=== PATIENT | male | born 1985 | race American Indian/Alaskan Native ===

== ENCOUNTER 2018-12-31 16:57 | Emergency (ER) | payer OTHER ==
--- NOTE | 2018-12-31 17:29 | Emergency Department Report ---
Blank Doc - Documentation Documentation: This is a 33-year-old male that presents with abdominal pain. Denies any n/v. Stated also has some burping. This initial assessment/diagnostic orders/clinical plan/treatment(s) is/are subject to change based on patient's health status, clinical progression and re- assessment by fellow clinical providers in the ED. Further treatment and workup at subsequent clinical providers discretion. Patient/guardians urged not to elope from the ED as their condition may be serious if not clinically assessed and managed. Initial orders include: 1- Patient sent to [facility] for further evaluation and treatment 2- labs 3- UA
[2018-12-31] MEDS ORDERED: LEVSIN SL SL ONE (18:16)
[2018-12-31 19:05] LABS: Bilirubin,Urine NEG (Negative); Blood,Urine NEG (Negative); Color,Urine Yellow (Yellow); Mucus,Urine FEW /HPF; Protein,Urine <15 mg/dL mg/dL (Negative); Urobilinogen,Urine < 2.0 mg/dL (<2.0)
[2018-12-31 19:13] LABS: Basophils # (Auto) 0.1 K/mm3 (0.0-0.1); Basophils % (Auto) 0.8 % (0.0-1.8); Eosinophils # (Auto) 0.2 K/mm3 (0.0-0.4); Eosinophils % (Auto) 2.2 % (0.0-4.3); Hematocrit 45.7 % (35.5-45.6); Hemoglobin 15.2 gm/dl (11.8-15.2); Lymphocytes # (Auto) 2.5 K/mm3 (1.2-5.4); Lymphocytes % (Auto) 32.6 % (13.4-35.0); Mean Corpuscular HGB Conc 33 % (32-34); Mean Corpuscular Volume 94 fl (84-94); Monocytes # (Auto) 0.6 K/mm3 (0.0-0.8); Monocytes % (Auto) 7.7 % (0.0-7.3); Platelet Count 265 K/mm3 (140-440); Red Blood Count 4.87 M/mm3 (3.65-5.03); Red Cell Distribution Width 13.2 % (13.2-15.2)
--- NOTE | 2018-12-31 20:01 | Emergency Department Report ---
ED Abdominal Pain HPI - General Chief Complaint: Abdominal Pain Stated Complaint: STOMACH PAIN Time Seen by Provider: 12/31/18 17:28 Source: patient Mode of arrival: Ambulatory Limitations: No Limitations - History of Present Illness Initial Comments: 33-year-old -Citizen Of [place] male presents to the emergency room for intermittent sharp crampy abdominal pain to the upper abdomen 2 weeks. Patient denies any nausea vomiting or diarrhea. Patient reports he has a history of alcoholic pancreatitis. Patient admits to belching and having acid reflux. Patient reports it feels like his pancreatitis. Patient has taken nothing for it. Denies any nausea vomiting diarrhea. Patient does have a primary care provider since [place] Complaint: abdominal pain Onset/Timin -: week(s) Location: diffuse Migration to: no migration Severity scale (0 -10): 6 Quality: cramping - Related Data Previous Rx's Medication Instructions Recorded Last Taken Type Omeprazole 40 mg PO QDAY #20 capsule. 12/31/18 Unknown Rx Allergies Allergy/AdvReac Type Severity Reaction Status Date / Time No Known Allergies Allergy Unverified 12/31/18 17:00 ED Review of Systems ROS: Stated complaint: STOMACH PAIN Other details as noted in HPI Comment: All other systems reviewed and negative Gastrointestinal: abdominal pain, other (belching, reflux). denies: nausea, vomiting Skin: denies: rash, lesions ED Past Medical Hx - Past Medical History Previous Medical History?: No - Surgical History Past Surgical History?: No - Social History Smoking Status: Current Every Day Smoker Substance Use Type: Alcohol - Medications Home Medications: Home Medications Medication Instructions Recorded Confirmed Last Taken Type Omeprazole 40 mg PO QDAY #20 capsule. 12/31/18 Unknown Rx ED Physical Exam - General Limitations: No Limitations General appearance: alert, in no apparent distress - Head Head exam: Present: atraumatic, normocephalic - Eye Eye exam: Present: normal appearance - ENT ENT exam: Present: mucous membranes moist - Neck Neck exam: Present: normal inspection - Respiratory Respiratory exam: Present: normal lung sounds bilaterally. Absent: respiratory distress - Cardiovascular Cardiovascular Exam: Present: regular rate, normal rhythm. Absent: systolic murmur, diastolic murmur, rubs, gallop - GI/Abdominal GI/Abdominal exam: Present: soft, normal bowel sounds - Rectal Rectal exam: Present: deferred - Extremities Exam Extremities exam: Present: normal inspection - Back Exam Back exam: Present: normal inspection - Neurological Exam Neurological exam: Present: alert, oriented X3 - Psychiatric Psychiatric exam: Present: normal affect, normal mood - Skin Skin exam: Present: warm, dry, intact, normal color. Absent: rash ED Course Vital Signs 12/31/18 17:28 Temperature 99.0 F Pulse Rate 54 L Respiratory 18 Rate Blood Pressure 140/78 O2 Sat by Pulse 98 Oximetry ED Medical Decision Making - Lab Data Result diagrams: 12/31/18 19:03 12/31/18 19:34 - Radiology Data Radiology results: report reviewed Patient: [address] MR#: [id number] 3 : 1985 Acct:[id number] Age/Sex: 33 / M ADM Date: 12/31/18 Loc: ED Attending Dr: Ordering Physician: JOSE GOMEZ Date of Service: 12/31/18 Procedure(s): CT abdomen pelvis wo con Accession Number(s): [id number] cc: JOSE GOMEZ CT ABDOMEN AND PELVIS WITHOUT IV CONTRAST INDICATION: epigastric abdominal pain. COMPARISON: None available. TECHNIQUE: All CT scans at this facility use dose modulation, automated exposure control, iterative reconstruction or weight based dosing, when appropriate, to reduce radiation dose to as low as reasonably achievable. FINDINGS: Lung Bases: No significant abnormality. Skeletal System: No acute abnormality. ABDOMEN: Liver: No significant abnormality. Gallbladder: No significant abnormality. Bile Ducts: No significant abnormality. Pancreas: No significant abnormality. Spleen: No significant abnormality. Adrenals: No significant abnormality. Right Kidney: There are a few punctate nonobstructing right renal stones. There is no right hydronephrosis. Left Kidney: No significant abnormality. Upper GI tract: No significant abnormality. Lymph Nodes: No significant adenopathy. Aorta: No significant abnormality. Additional Findings: No significant abnormality. PELVIS: Colon: Normal aside from diverticulosis. Urinary Bladder and Distal Ureters: No significant abnormality. Appendix: No significant abnormality. Lymph Nodes: No significant adenopathy. Additional Findings: None. IMPRESSION: 1. Within the limitations of non contrast technique, no acute process in the abdomen or pelvis. 2. There is minimal right nephrolithiasis. No ureteral stone or hydronephrosis. Signer Name: Saravanan Can MD Signed: 12/31/2018 8:34 PM Workstation Name: [id number] Transcribed By: SW Dictated By: Saravanan Can MD Electronically Authenticated By: Saravanan Can MD Signed Date/Time: 12/31/182033 DD/ 26 TD/TT: - Medical Decision Making 33-year-old -Citizen Of [place] male presents to the emergency room for intermitte nt sharp crampy abdominal pain to the upper abdomen 2 weeks. Patient denies any nausea vomiting or diarrhea. Patient reports he has a history of alcoholic pancreatitis. Patient admits to belching and having acid reflux. Patient reports it feels like his pancreatitis. Patient has taken nothing for it. Denies any nausea vomiting diarrhea. Patient does have a primary care provider since [place] Levsin 0.125 mg and Carafate 1 [address] by mouth liquid. CT of abdomen shows no acute abnormalities. Critical care attestation.: If time is entered above; I have spent that time in minutes in the direct care of this critically ill patient, excluding procedure time. ED Disposition Clinical Impression: Abdominal pain Qualifiers: Abdominal location: generalized Qualified Code(s): R10.84 - Generalized abdominal pain Acid reflux Qualifiers: Esophagitis presence: without esophagitis Qualified Code(s): K21.9 - Gastro- esophageal reflux disease without esophagitis Disposition: DC-01 TO HOME OR SELFCARE Is pt being admited?: No Does the pt Need Aspirin: No Condition: Stable Instructions: Gastroesophageal Reflux Disease (ED), Gas and Bloating (ED), Abdominal Pain (ED) Additional Instructions: Take medications as prescribed. 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 Referrals: PRIMARY MD [facility] [Primary Care Provider] - 3-5 Days [facility] [Provider Group] - 3-5 Days Forms: Work/School Release Form(ED), Accompanied Note
[2018-12-31 20:09] LABS: Alanine Aminotransferase 16 units/L (7-56); Albumin 4.5 g/dL (3.9-5); BUN/Creatinine Ratio 13; Blood Urea Nitrogen 14 mg/dL (9-20); Calcium 9.7 mg/dL (8.4-10.2); Hemolysis Index 8
--- NOTE | 2018-12-31 20:38 | Cat Scan Report ---
CT ABDOMEN AND PELVIS WITHOUT IV CONTRAST INDICATION: epigastric abdominal pain. COMPARISON: None available. TECHNIQUE: All CT scans at this facility use dose modulation, automated exposure control, iterative reconstructi on or weight based dosing, when appropriate, to reduce radiation dose to as low as reasonably achieva ble. FINDINGS: Lung Bases: No significant abnormality. Skeletal System: No acute abnormality. ABDOMEN: Liver: No significant abnormality. Gallbladder: No significant abnormality. Bile Ducts: No significant abnormality. Pancreas: No significant abnormality. Spleen: No significant abnormality. Adrenals: No significant abnormality. Right Kidney: There are a few punctate nonobstructing right renal stones. There is no right hydroneph rosis. Left Kidney: No significant abnormality. Upper GI tract: No significant abnormality. Lymph Nodes: No significant adenopathy. Aorta: No significant abnormality. Additional Findings: No significant abnormality. PELVIS: Colon: Normal aside from diverticulosis. Urinary Bladder and Distal Ureters: No significant abnormality. Appendix: No significant abnormality. Lymph Nodes: No significant adenopathy. Additional Findings: None. IMPRESSION: 1. Within the limitations of non contrast technique, no acute process in the abdomen or pelvis. 2. There is minimal right nephrolithiasis. No ureteral stone or hydronephrosis. Signer Name: Saravanan Can MD Signed: 12/31/2018 8:34 PM Workstation Name: [id number]
[2018-12-31] MEDS ORDERED: CARAFATE PO ONE (20:57)
[2018-12-31] MEDS ORDERED: PEPCID PO ONE (20:59)
[2018-12-31 21:46] VITALS: BP 136/62
== END 2018-12-31 21:45 | disposition home or self-care (01) ==
LOC: ED 16:57
DX: K21.9 Gastro-esophageal reflux disease without esophagitis (principal); F17.200 Nicotine dependence, unspecified, uncomplicated; Z79.899 Other long term (current) drug therapy
CPT/HCPCS: 36415; 74176; 80053; 81001; 83690; 85025